=== PATIENT | female | born 1945 | race Caucasian/White ===

== ENCOUNTER → 2024-02-24 12:35 | Outpatient (REF) | payer MEDICARE, SELFPAY | LOC: RCS 12:35 | PROVIDERS: ATTENDING PHYSICIAN Student in an Organized Health Care Education/Training Program; FAMILY PHYSICIAN Internal Medicine | DX: R00.2 Palpitations (principal); I48.91 Unspecified atrial fibrillation | CPT/HCPCS: 93225; 93226 ==

== ENCOUNTER → 2024-10-26 13:57 | Outpatient (REF) | payer MEDICARE, SELFPAY | LOC: HWRCS 13:57 | PROVIDERS: ATTENDING PHYSICIAN Student in an Organized Health Care Education/Training Program; FAMILY PHYSICIAN Family Medicine | DX: I35.0 Nonrheumatic aortic (valve) stenosis (principal) | CPT/HCPCS: 93306 ==

== ENCOUNTER → 2024-11-12 09:10 | Outpatient (REF) | payer MEDICARE, SELFPAY ==
[2024-11-12 10:44] LABS: Hematocrit 41.7 % (37.0-47.0); Hemoglobin 13.8 g/dL (12.0-16.0); Mean Corp Hgb Conc. 33.1 g/dL (33.0-37.0); Mean Corpuscular Volume 97.7 fL (81.0-99.0); Nucleated Red Blood Cells % 0 %; Platelet Count 243 10^3/uL (130-400); Red Cell Dist. Width 11.9 % (11.5-14.5)
[2024-11-12 11:13] LABS: ALT (SGPT) 26 U/L (0-35); AST (SGOT) 31 U/L (14-36); Albumin 4.3 g/dl (3.5-5.0); Alkaline Phosphatase 72 U/L (38-126); Blood Urea Nitrogen 16 mg/dl (7-17); Calcium 9.9 mg/dl (8.4-10.2); Carbon Dioxide 28 mmol/L (22-30); Chloride 109 mmol/L (98-107); Glucose 112 mg/dl (70-99); HDL Cholesterol 91 mg/dl; LDL Cholesterol, Calculated 84 mg/dl; Potassium 5.4 mmol/L (3.5-5.1); Sodium 143 mmol/L (135-145); Total Protein 7.8 g/dl (6.3-8.2); Very Low Density Lipoprotein 17 mg/dl (0-30); eGFR > 60.00
== END ==
LOC: REG 09:10
PROVIDERS: ATTENDING PHYSICIAN Student in an Organized Health Care Education/Training Program
DX: I25.10 Atherosclerotic heart disease of native coronary artery without angina pectoris (principal)
CPT/HCPCS: 36415; 80053; 80061; 85025